=== PATIENT | male | born 1985 | race Caucasian/White ===

== ENCOUNTER 2018-05-16 09:17 | Emergency (ER) | payer OTHER ==
[~2018-05-16] VITALS: Ht 167.6 cm; Wt 80.3 kg
[2018-05-16 09:25] VITALS: BP 138/82
[2018-05-16] MEDS ORDERED: IBUPROFEN 200 MG TABLET PO ONE (10:00)
[2018-05-16] MEDS ORDERED: IBUPROFEN 200 MG TABLET ONE (10:10)
== END 2018-05-16 10:41 | disposition home or self-care (01) ==
LOC: ED 10:35
DX: S93.621A Sprain of tarsometatarsal ligament of right foot, initial encounter (principal); W18.39XA Other fall on same level, initial encounter; Y93.55 Activity, bike riding; Y92.828 Other wilderness area as the place of occurrence of the external cause; Y99.8 Other external cause status
CPT/HCPCS: 99284